=== PATIENT | female | born 1990 | race Caucasian/White ===

== ENCOUNTER 2024-10-10 06:18 | Observation (INO) ==
[2024-10-10] MEDS: NOZIN NASAL SANITIZER TP ONE (06:48)
[2024-10-10] MEDS: LR 1,000 ML IV 1,000 ML IV ONE (06:49)
[2024-10-10] MEDS: VASOSTRICT INJ 20 UNITS VIAL ONE (07:06)
[2024-10-10 07:19] VITALS: BMI 28.4
[2024-10-10] MEDS: ANCEF VIAL 1 GRAM IVP ONE (07:23)
[2024-10-10] MEDS: NS 100 ML IV 100 ML ONE (07:23)
[2024-10-10] MEDS: REGLAN INJ 10 MG VIAL ONE (07:30)
[2024-10-10] MEDS: FENTANYL VIAL INJ 100 mcg ONE (07:30)
[2024-10-10] MEDS: PRECEDEX INJ VIAL ONE (07:30)
[2024-10-10] MEDS: ZEMURON 100 MG VIAL ONE (07:30)
[2024-10-10] MEDS: PEPCID 20 MG VIAL ONE (07:30)
[2024-10-10] MEDS: VERSED ONE (07:30)
[2024-10-10] MEDS: OFIRMEV IV 1000 MG VIAL 1,000 MG/100 ML VIAL IV ONE (07:30)
[2024-10-10] MEDS: ZOFRAN INJ 4 MG VIAL ONE (07:30)
[2024-10-10] MEDS: BRIDION ONE (07:30)
[2024-10-10] MEDS ORDERED: KETAMINE HCL ONE (07:30)
[2024-10-10] MEDS: DECADRON INJ ONE (07:30)
[2024-10-10] MEDS: TORADOL 30 MG VIAL ONE (07:30)
[2024-10-10] MEDS ORDERED: XYLOCAINE 2 % (PLAIN) ONE (07:30)
[2024-10-10] MEDS: DIPRIVAN VIAL 20 ML ONE (07:30)
[2024-10-10] MEDS ORDERED: ULTANE GAS IN ONE (07:30)
[2024-10-10] MEDS: BETADINE SOLN ONE (07:32)
[2024-10-10] MEDS: LUBIFRESH PM EYE OINTMENT ONE (07:33)
[2024-10-10] MEDS: EPHEDRINE SULFATE INJ ONE (07:58)
[2024-10-10] MEDS ORDERED: ZOFRAN INJ 4 MG VIAL IVP PRN (08:25)
[2024-10-10] MEDS ORDERED: BARHEMSYS INJ IVP PRN (08:25)
[2024-10-10] MEDS ORDERED: BENADRYL INJ 50 MG VIAL IVP PRN ×2 (08:25→10:08)
[2024-10-10] MEDS: HESPAN IV IN NS 500 ML IV ONE (08:29)
[2024-10-10] MEDS: DUONEB 0.5 MG/3 MG (3 mL) NEB ONE (09:45)
[2024-10-10] MEDS: DILAUDID INJ IVP PRN (10:00)
[2024-10-10] MEDS ORDERED: NARCAN INJ IVP PRN (10:08)
[2024-10-10] MEDS: MORPHINE SULFATE PCA 30 MG IVP PRN (10:40)
[2024-10-10] MEDS: TORADOL 30 MG VIAL IVP PRN (12:50)
[2024-10-10] MEDS: ZOFRAN INJ 4 MG VIAL IVP PRN (15:01)
[2024-10-10] MEDS: PERCOCET TAB 5/325 MG PO PRN (16:31)
[2024-10-10] MEDS: WELLBUTRIN SR 150 MG (BID) PO SCH (20:08)
[2024-10-10] MEDS: ZOFRAN TAB 4 MG PO PRN (20:08)
[2024-10-10] MEDS: MOTRIN TAB 800 MG PO PRN (20:08)
[2024-10-10] MEDS: COLACE CAP 100 MG PO PRN (20:56)
[2024-10-10] MEDS: D5 1/2 NS 1,000 ML 1,000 ML IV SCH ×2 (23:44→23:45)
[2024-10-11 04:22] LABS: BASOPHILS # (AUTO) 0.3 X10^3/uL (0.0-0.1); BASOPHILS % (AUTO) 1.3 % (0.2-1.0); EOSINOPHILS # (AUTO) 0.1 x10^3/uL (0.0-0.2); EOSINOPHILS % (AUTO) 0.3 % (0.9-2.9); HEMATOCRIT 36.8 % (36.0-47.0); HEMOGLOBIN 12.9 g/dL (12.0-16.0); LYMPHOCYTES # (AUTO) 1.3 X10^3/uL (1.3-2.9); LYMPHOCYTES % (AUTO) 6.3 % (21.0-51.0); MEAN CORPUSCULAR HEMOGLOBIN 32.1 pg (27.0-34.0); MEAN CORPUSCULAR HGB CONC 35.2 g/dL (33.0-35.0); MEAN CORPUSCULAR VOLUME 91.2 fL (80.0-100.0); MONOCYTES # (AUTO) 0.6 x10^3/uL (0.3-0.8); NEUTROPHILS # (AUTO) 18.2 x10^3/uL (2.2-4.8); NEUTROPHILS % (AUTO) 89.1 % (42.0-75.0); PLATELET COUNT 257 X10^3/uL (150.0-450.0); RED BLOOD COUNT 4.03 X10^6/uL (3.5-5.4); RED CELL DISTRIBUTION WIDTH 13.1 % (11.6-16.5); WHITE BLOOD COUNT 20.5 X10^3/uL (3.6-10.0)
[2024-10-11 04:31] LABS: BLOOD UREA NITROGEN 10 mg/dL (7-18); CALCIUM 8.5 mg/dL (8.5-10.1); CARBON DIOXIDE 28.3 mmol/L (21-32); CHLORIDE 102 mmol/L (98-107); COR NA(FOR HYPERGLY) 138 mmol/L (136-145); CREATININE 1.01 mg/dL (0.55-1.02); GLUCOSE 136 mg/dL (65-99); POTASSIUM 4.1 mmol/L (3.5-5.1); SODIUM 137 mmol/L (136-145); eGFR NON BLACK RACES > 60 (>60)
[2024-10-11 04:39] LABS: PLATELET MORPHOLOGY COMMENT NORMAL (NORMAL)
[2024-10-11] MEDS: DILAUDID INJ ONE (06:52)
[2024-10-11] MEDS: PEPCID TAB 20 MG PO PRN (07:22)
[2024-10-11 07:59] VITALS: BP 92/54; PULSE 64; TEMP 97.8; O2SAT 96
[2024-10-11 13:02] VITALS: RESP 20
== END 2024-10-11 10:00 | disposition home or self-care (01) ==
LOC: MED/SURG 06:18 → SURG1 06:18
PROVIDERS: ADMIT Specialist; ATTEND Specialist